=== PATIENT | female | born 1955 | race African-American/Black ===

== ENCOUNTER 2018-05-22 09:20 | Inpatient (IN) ==
[2018-05-22 10:38] LABS: Basophils % 0.5 % (0.0-0.8); Eosinophils # 0.1 10*3/uL (0.0-0.87); Eosinophils % 1.6 % (0.00-10.9); Hemoglobin 11.1 GM/DL (12.0-16.0); Immature Granulocytes % 0.7 %; Immature Granulocytes Absolute 0.06 #; Lymphocytes # 1.7 10*3/uL (1.4-4.0); Lymphocytes % 20.3 % (21.3-54.2); Mean Corpuscular HGB Conc 30.8 GM/DL (32-36); Mean Corpuscular Hemoglobin 27 PG (27-34); Mean Corpuscular Volume 87.6 FL (87-102); Mean Platelet Volume 11.5 FL (9.6-12.0); Monocytes # 0.7 10*3/uL (0.11-0.8); Monocytes % 8.3 % (1.7-12.7); Neutrophils # 5.9 10*3/uL (1.4-7.4); Neutrophils % 68.6 % (38.7-73.9); Platelet Count 193 T/CUMM (130-400); Red Blood Count 4.11 MC/CUMM (3.8-5.5); Red Cell Distribution Width 16.4 % (9.3-17.3); White Blood Count 8.5 T/CUMM (4-12)
[2018-05-22 10:49] LABS: PT Patient Result 10.2 SECS
[2018-05-22 10:55] LABS: Partial Thromboplastin Time 39.8 SECS (0-40)
[2018-05-22 11:23] LABS: Alanine Aminotransferase 30 U/L (13-56); Albumin 3.4 G/DL (3.4-5.0); Alkaline Phosphatase 171 U/L (45-117); Aspartate Amino Transferase 17 U/L (0-37); Blood Urea Nitrogen 76 MG/DL (7-18); Calcium 9.7 MG/DL (8.5-10.1); Glucose 144 MG/DL (74-106); Osmolality,Calculated 302.5 MOS/KG (273-304); Potassium 5.3 MMOL/L (3.5-5.1); Sodium 139 MMOL/L (136-145); Total Protein 7.5 G/DL (6.4-8.3); Troponin I Only < 0.015 NG/ML (0.00-0.045)
[2018-05-22] MEDS ORDERED: ONDANSETRON 4 MG/2 ML VIAL IV PRN (14:01)
[2018-05-22] MEDS ORDERED: DOCUSATE SODIUM 100 MG CAPSULE PO PRN (14:01)
[2018-05-22] MEDS ORDERED: ACETAMINOPHEN 325 MG TABLET PO PRN (14:01)
[2018-05-22] MEDS ORDERED: guaiFENesin/DM ER 600-30 MG TABLET PO PRN (14:01)
[2018-05-22] MEDS ORDERED: MORPHINE 4 MG/1 ML VIAL IV PRN (14:01)
[2018-05-22] MEDS ORDERED: GLUCAGON 1 MG VIAL IM PRN (14:01)
[2018-05-22] MEDS ORDERED: LACTULOSE 20 GM/30 ML UDCUP PO PRN (14:01)
[2018-05-22] MEDS ORDERED: DEXTROSE 50% 25 GM/50 ML VIAL IV PRN (14:01)
[2018-05-22] MEDS ORDERED: diphenhydrAMINE CAP 25 MG CAPSULE PO PRN (14:04)
[2018-05-22] MEDS ORDERED: SODIUM POLYSTYRENE SULFATE 15 GM/60 ML BOTTLE PO ONE (14:19)
[2018-05-22] MEDS: SODIUM CHLORIDE 0.9% 1,000 ML IV SCH (16:51)
[2018-05-22] MEDS: INSULIN LISPRO 100 UNIT/ML SUBCUT SCH ×2 (17:29→22:29)
[2018-05-22] MEDS: INSULIN NPH/REGULAR 70/30 100 UNIT/ML SUBCUT SCH (17:29)
[2018-05-22] MEDS: ATORVASTATIN 20 MG TABLET PO SCH (22:28)
[2018-05-22] MEDS: ENOXAPARIN 40 MG/0.4 ML SYRINGE SUBCUT SCH (22:31)
[2018-05-22] MEDS: INSULIN GLARGINE 100 UNIT/ML SUBCUT SCH (22:31)
[2018-05-22] MEDS: PANTOPRAZOLE 40 MG TABLET PO SCH (23:13)
[2018-05-23] MEDS: SODIUM CHLORIDE 0.9% 1,000 ML IV SCH ×2 (04:26→17:47)
[2018-05-23 07:27] LABS: Basophils % 0.5 % (0.0-0.8); Eosinophils # 0.1 10*3/uL (0.0-0.87); Eosinophils % 1.9 % (0.00-10.9); Hematocrit 33.4 VOL% (35.7-47.0); Hemoglobin 10.4 GM/DL (12.0-16.0); Immature Granulocytes % 0.7 %; Immature Granulocytes Absolute 0.04 #; Lymphocytes # 1.4 10*3/uL (1.4-4.0); Lymphocytes % 23.9 % (21.3-54.2); Mean Corpuscular HGB Conc 31.1 GM/DL (32-36); Mean Corpuscular Hemoglobin 27 PG (27-34); Mean Corpuscular Volume 86.5 FL (87-102); Mean Platelet Volume 11.9 FL (9.6-12.0); Monocytes # 0.5 10*3/uL (0.11-0.8); Monocytes % 8.2 % (1.7-12.7); NRBC # 0.02 10*3/uL; Neutrophils # 3.7 10*3/uL (1.4-7.4); Neutrophils % 64.8 % (38.7-73.9); Platelet Count 189 T/CUMM (130-400); Red Blood Count 3.86 MC/CUMM (3.8-5.5); Red Cell Distribution Width 16.5 % (9.3-17.3); White Blood Count 5.7 T/CUMM (4-12)
[2018-05-23] MEDS: INSULIN LISPRO 100 UNIT/ML SUBCUT SCH ×4 (07:30→20:55)
[2018-05-23 08:10] LABS: Calcium 8.9 MG/DL (8.5-10.1); Osmolality,Calculated 298.3 MOS/KG (273-304); Potassium 4.8 MMOL/L (3.5-5.1); Thyroid Stimulating Hormone 1.67 uIU/ml (0.358-3.74)
[2018-05-23] MEDS ORDERED: PANTOPRAZOLE 40 MG TABLET PO SCH (09:00)
[2018-05-23] MEDS: INSULIN NPH/REGULAR 70/30 100 UNIT/ML SUBCUT SCH ×2 (09:10→17:21)
[2018-05-23] MEDS: ALLOPURINOL 300 MG TABLET PO SCH (09:11)
[2018-05-23] MEDS: PYRIDOXINE 100 MG TABLET PO SCH (09:11)
[2018-05-23] MEDS: FEXOFENADINE 180 MG TABLET PO SCH (09:11)
[2018-05-23] MEDS: CYANOCOBALAMIN 500 MCG TABLET PO SCH (09:11)
[2018-05-23] MEDS: PANTOPRAZOLE 40 MG TABLET PO SCH ×2 (09:11→20:53)
[2018-05-23] MEDS: ASPIRIN EC 81 MG TABLET PO SCH (09:11)
[2018-05-23] MEDS: ATENOLOL 50 MG TABLET PO SCH (09:11)
[2018-05-23] MEDS: ATORVASTATIN 20 MG TABLET PO SCH (20:53)
[2018-05-23] MEDS: INSULIN GLARGINE 100 UNIT/ML SUBCUT SCH (20:54)
[2018-05-23] MEDS: ENOXAPARIN 40 MG/0.4 ML SYRINGE SUBCUT SCH (20:54)
[2018-05-24 07:15] LABS: Basophils % 0.5 % (0.0-0.8); Eosinophils # 0.2 10*3/uL (0.0-0.87); Eosinophils % 2.8 % (0.00-10.9); Hematocrit 31.5 VOL% (35.7-47.0); Hemoglobin 9.7 GM/DL (12.0-16.0); Immature Granulocytes % 0.3 %; Immature Granulocytes Absolute 0.02 #; Lymphocytes # 1.5 10*3/uL (1.4-4.0); Lymphocytes % 24.5 % (21.3-54.2); Mean Corpuscular HGB Conc 30.8 GM/DL (32-36); Mean Corpuscular Hemoglobin 27 PG (27-34); Mean Platelet Volume 12.2 FL (9.6-12.0); Monocytes # 0.6 10*3/uL (0.11-0.8); Monocytes % 9.9 % (1.7-12.7); Neutrophils # 3.7 10*3/uL (1.4-7.4); Platelet Count 177 T/CUMM (130-400); Red Blood Count 3.58 MC/CUMM (3.8-5.5); Red Cell Distribution Width 16.3 % (9.3-17.3)
[2018-05-24 07:48] LABS: Calcium 8.7 MG/DL (8.5-10.1); Osmolality,Calculated 296.8 MOS/KG (273-304); Potassium 4.4 MMOL/L (3.5-5.1)
[2018-05-24] MEDS: FEXOFENADINE 180 MG TABLET PO SCH (09:34)
[2018-05-24] MEDS: CYANOCOBALAMIN 500 MCG TABLET PO SCH (09:34)
[2018-05-24] MEDS: ATENOLOL 50 MG TABLET PO SCH (09:34)
[2018-05-24] MEDS: PYRIDOXINE 100 MG TABLET PO SCH (09:34)
[2018-05-24] MEDS: ASPIRIN EC 81 MG TABLET PO SCH (09:34)
[2018-05-24] MEDS: SODIUM CHLORIDE 0.9% 1,000 ML IV SCH (09:34)
[2018-05-24] MEDS: PANTOPRAZOLE 40 MG TABLET PO SCH ×2 (09:35→20:41)
[2018-05-24] MEDS: INSULIN NPH/REGULAR 70/30 100 UNIT/ML SUBCUT SCH ×2 (09:35→17:01)
[2018-05-24] MEDS: INSULIN LISPRO 100 UNIT/ML SUBCUT SCH ×4 (09:35→20:41)
[2018-05-24] MEDS: ALLOPURINOL 300 MG TABLET PO SCH (09:35)
[2018-05-24] MEDS ORDERED: FUROSEMIDE 40 MG/4 ML VIAL IV ONE (09:39)
[2018-05-24] MEDS: FUROSEMIDE 40 MG/4 ML VIAL IV SCH (10:11)
[2018-05-24] MEDS: ATORVASTATIN 20 MG TABLET PO SCH (20:41)
[2018-05-24] MEDS: ENOXAPARIN 40 MG/0.4 ML SYRINGE SUBCUT SCH (20:41)
[2018-05-24] MEDS: INSULIN GLARGINE 100 UNIT/ML SUBCUT SCH (20:41)
[2018-05-25 07:01] LABS: Basophils % 0.5 % (0.0-0.8); Eosinophils # 0.2 10*3/uL (0.0-0.87); Eosinophils % 2.9 % (0.00-10.9); Hematocrit 32.9 VOL% (35.7-47.0); Immature Granulocytes % 0.5 %; Immature Granulocytes Absolute 0.04 #; Lymphocytes # 1.9 10*3/uL (1.4-4.0); Lymphocytes % 24.8 % (21.3-54.2); Mean Corpuscular HGB Conc 30.4 GM/DL (32-36); Mean Corpuscular Hemoglobin 27 PG (27-34); Mean Corpuscular Volume 89.4 FL (87-102); Mean Platelet Volume 12.2 FL (9.6-12.0); Monocytes # 0.8 10*3/uL (0.11-0.8); Monocytes % 10.4 % (1.7-12.7); Neutrophils # 4.7 10*3/uL (1.4-7.4); Neutrophils % 60.9 % (38.7-73.9); Platelet Count 184 T/CUMM (130-400); Red Blood Count 3.68 MC/CUMM (3.8-5.5); Red Cell Distribution Width 16.1 % (9.3-17.3); White Blood Count 7.7 T/CUMM (4-12)
[2018-05-25 07:18] LABS: Calcium 9.2 MG/DL (8.5-10.1); Osmolality,Calculated 291.8 MOS/KG (273-304); Potassium 3.9 MMOL/L (3.5-5.1)
[2018-05-25] MEDS: INSULIN LISPRO 100 UNIT/ML SUBCUT SCH ×4 (09:18→21:02)
[2018-05-25] MEDS: FUROSEMIDE 40 MG/4 ML VIAL IV SCH (09:19)
[2018-05-25] MEDS: CYANOCOBALAMIN 500 MCG TABLET PO SCH (09:19)
[2018-05-25] MEDS: INSULIN NPH/REGULAR 70/30 100 UNIT/ML SUBCUT SCH ×2 (09:19→16:46)
[2018-05-25] MEDS: PANTOPRAZOLE 40 MG TABLET PO SCH ×2 (09:19→21:01)
[2018-05-25] MEDS: ATENOLOL 50 MG TABLET PO SCH (09:19)
[2018-05-25] MEDS: ASPIRIN EC 81 MG TABLET PO SCH (09:19)
[2018-05-25] MEDS: PYRIDOXINE 100 MG TABLET PO SCH (09:20)
[2018-05-25] MEDS: ALLOPURINOL 300 MG TABLET PO SCH (09:20)
[2018-05-25] MEDS: FEXOFENADINE 180 MG TABLET PO SCH (09:20)
[2018-05-25] MEDS: ENOXAPARIN 40 MG/0.4 ML SYRINGE SUBCUT SCH (21:01)
[2018-05-25] MEDS: ATORVASTATIN 20 MG TABLET PO SCH (21:01)
[2018-05-25] MEDS: INSULIN GLARGINE 100 UNIT/ML SUBCUT SCH (21:01)
[2018-05-26 06:49] LABS: Basophils % 0.5 % (0.0-0.8); Eosinophils # 0.2 10*3/uL (0.0-0.87); Eosinophils % 2.6 % (0.00-10.9); Hematocrit 34.2 VOL% (35.7-47.0); Hemoglobin 10.5 GM/DL (12.0-16.0); Immature Granulocytes % 0.5 %; Immature Granulocytes Absolute 0.04 #; Lymphocytes # 1.6 10*3/uL (1.4-4.0); Lymphocytes % 20.1 % (21.3-54.2); Mean Corpuscular HGB Conc 30.7 GM/DL (32-36); Mean Corpuscular Hemoglobin 27 PG (27-34); Mean Corpuscular Volume 88.6 FL (87-102); Mean Platelet Volume 11.7 FL (9.6-12.0); Monocytes # 0.7 10*3/uL (0.11-0.8); Monocytes % 8.3 % (1.7-12.7); Neutrophils # 5.5 10*3/uL (1.4-7.4); Platelet Count 193 T/CUMM (130-400); Red Blood Count 3.86 MC/CUMM (3.8-5.5); Red Cell Distribution Width 16.3 % (9.3-17.3); White Blood Count 8.1 T/CUMM (4-12)
[2018-05-26 07:12] LABS: Osmolality,Calculated 287.4 MOS/KG (273-304); Potassium 3.8 MMOL/L (3.5-5.1)
[2018-05-26] MEDS: INSULIN LISPRO 100 UNIT/ML SUBCUT SCH ×2 (09:18→14:26)
[2018-05-26] MEDS: INSULIN NPH/REGULAR 70/30 100 UNIT/ML SUBCUT SCH (09:23)
[2018-05-26] MEDS: ATENOLOL 50 MG TABLET PO SCH (09:24)
[2018-05-26] MEDS: ALLOPURINOL 300 MG TABLET PO SCH (09:24)
[2018-05-26] MEDS: PANTOPRAZOLE 40 MG TABLET PO SCH (09:24)
[2018-05-26] MEDS: FUROSEMIDE 40 MG/4 ML VIAL IV SCH (09:24)
[2018-05-26] MEDS: PYRIDOXINE 100 MG TABLET PO SCH (09:25)
[2018-05-26] MEDS: ASPIRIN EC 81 MG TABLET PO SCH (09:25)
[2018-05-26] MEDS: FEXOFENADINE 180 MG TABLET PO SCH (09:25)
[2018-05-26] MEDS: CYANOCOBALAMIN 500 MCG TABLET PO SCH (09:25)
[2018-05-26] MEDS ORDERED: MAGNESIUM SULF RIDER 4 GM in PREMIX 1 EACH IV PRN (09:57)
[2018-05-26] MEDS ORDERED: MAGNESIUM SULF RIDER 2 GM in PREMIX 1 EACH IV PRN (09:57)
[2018-05-26] MEDS ORDERED: MAGNESIUM OXIDE 400 MG TABLET PO ONE (10:55)
[2018-05-26] MEDS ORDERED: POLYETHYLENE GLYCOL POWDER 17 GM PACK PO SCH (11:00)
[2018-05-26 14:25] VITALS: BP 137/67
== END 2018-05-26 14:16 | disposition home or self-care (01) | DRG 683 ==
LOC: N.ED 09:20 → SUATTDRO 11:44 → N.EDINP 11:44 → N.5E 15:36
PROVIDERS: ADMIT Internal Medicine; ATTEND Internal Medicine

== ENCOUNTER 2020-08-01 17:22 | Observation (INO) ==
[2020-08-01 18:08] LABS: Basophils % 0.5 % (0.0-0.8); Eosinophils # 0.2 10*3/uL (0.0-0.87); Eosinophils % 2.6 % (0.00-10.9); Hematocrit 39.3 VOL% (35.7-47.0); Hemoglobin 12.2 GM/DL (12.0-16.0); Immature Granulocytes % 0.8 %; Immature Granulocytes Absolute 0.05 #; Lymphocytes % 16.5 % (21.3-54.2); Mean Corpuscular Volume 84.5 FL (87-102); Mean Platelet Volume 11.2 FL (9.6-12.0); Neutrophils % 68.6 % (38.7-73.9); Platelet Count 206 T/CUMM (130-400); Red Blood Count 4.65 MC/CUMM (3.8-5.5); Red Cell Distribution Width 16.4 % (9.3-17.3); White Blood Count 6.3 T/CUMM (4-12)
[2020-08-01 18:30] LABS: Albumin 3.1 G/DL (3.4-5.0); Bilirubin,Total 0.5 MG/DL (0.2-1.0); Calcium 8.8 MG/DL (8.5-10.1); Osmolality,Calculated 275.2 MOS/KG (273-304); Total Protein 7.4 G/DL (6.4-8.3)
[2020-08-01] MEDS ORDERED: DEXTROSE 50% 25 GM/50 ML VIAL IV PRN ×2 (19:31→19:35)
[2020-08-01] MEDS ORDERED: GLUCAGON 1 MG VIAL IM PRN (19:31)
[2020-08-01] MEDS: DOCUSATE SODIUM 100 MG CAPSULE PO SCH (21:05)
[2020-08-01] MEDS: PANTOPRAZOLE 40 MG TABLET PO SCH (21:05)
[2020-08-01] MEDS: INSULIN REGULAR 100 UNIT/ML SUBCUT SCH (21:13)
[2020-08-01] MEDS: MONTELUKAST 10 MG TABLET PO SCH (21:30)
[2020-08-01] MEDS: HEPARIN 5,000 UNIT/1 ML VIAL SUBCUT SCH (22:00)
[2020-08-02 04:45] LABS: Basophils % 0.5 % (0.0-0.8); Hemoglobin 12.9 GM/DL (12.0-16.0); Immature Granulocytes % 0.4 %; Immature Granulocytes Absolute 0.02 #; Lymphocytes # 1.4 10*3/uL (1.4-4.0); Lymphocytes % 25.4 % (21.3-54.2); Mean Corpuscular HGB Conc 31.5 GM/DL (32-36); Mean Corpuscular Volume 83.3 FL (87-102); Mean Platelet Volume 11.7 FL (9.6-12.0); Monocytes % 9.6 % (1.7-12.7); Neutrophils % 64.1 % (38.7-73.9); Platelet Count 213 T/CUMM (130-400); Red Blood Count 4.92 MC/CUMM (3.8-5.5); Red Cell Distribution Width 16.3 % (9.3-17.3); White Blood Count 5.6 T/CUMM (4-12)
[2020-08-02 04:59] LABS: Bilirubin,Total 0.4 MG/DL (0.2-1.0); Calcium 8.6 MG/DL (8.5-10.1); Osmolality,Calculated 277.1 MOS/KG (273-304); Total Protein 7.5 G/DL (6.4-8.3)
[2020-08-02 05:00] LABS: Ferritin 108.8 ng/ml (8-252)
[2020-08-02] MEDS ORDERED: INFLUENZA VIRUS VACCINE 0.5 ML SYRINGE IM ONE (09:24)
[2020-08-02] MEDS: ASPIRIN EC 81 MG TABLET PO SCH (09:34)
[2020-08-02] MEDS: HEPARIN 5,000 UNIT/1 ML VIAL SUBCUT SCH ×3 (09:34→21:26)
[2020-08-02] MEDS: CALCIUM (CARBONATE)/VITAMIN D 600 MG-400 UNIT TABLET PO SCH (09:34)
[2020-08-02] MEDS: CYANOCOBALAMIN 500 MCG TABLET PO SCH (09:35)
[2020-08-02] MEDS: CHOLECALCIFEROL 5,000 UNIT TABLET PO SCH (09:35)
[2020-08-02] MEDS: MONTELUKAST 10 MG TABLET PO SCH ×2 (09:35→21:26)
[2020-08-02] MEDS: DOCUSATE SODIUM 100 MG CAPSULE PO SCH ×3 (09:35→21:26)
[2020-08-02] MEDS: PANTOPRAZOLE 40 MG TABLET PO SCH ×2 (09:35→21:26)
[2020-08-02] MEDS: ZINC GLUCONATE 50 MG TABLET PO SCH (09:35)
[2020-08-02] MEDS: ACETAMINOPHEN 325 MG TABLET PO PRN (09:37)
[2020-08-02] MEDS: INSULIN REGULAR 100 UNIT/ML SUBCUT SCH ×4 (09:47→21:26)
[2020-08-02] MEDS: ONDANSETRON 4 MG/2 ML VIAL IV PRN (15:55)
[2020-08-03] MEDS: ACETAMINOPHEN 325 MG TABLET PO PRN (03:46)
[2020-08-03 05:45] LABS: Basophils % 0.2 % (0.0-0.8); Hematocrit 39.6 VOL% (35.7-47.0); Hemoglobin 12.7 GM/DL (12.0-16.0); Immature Granulocytes % 0.4 %; Immature Granulocytes Absolute 0.02 #; Mean Corpuscular HGB Conc 32.1 GM/DL (32-36); Mean Platelet Volume 11.5 FL (9.6-12.0); Monocytes % 5.3 % (1.7-12.7); Neutrophils % 76.1 % (38.7-73.9); Platelet Count 191 T/CUMM (130-400); Red Blood Count 4.77 MC/CUMM (3.8-5.5); Red Cell Distribution Width 16.2 % (9.3-17.3); White Blood Count 5.7 T/CUMM (4-12)
[2020-08-03] MEDS: HEPARIN 5,000 UNIT/1 ML VIAL SUBCUT SCH ×2 (05:48→14:50)
[2020-08-03 06:09] LABS: Albumin 2.6 G/DL (3.4-5.0); Bilirubin,Total 1.6 MG/DL (0.2-1.0); Calcium 8.7 MG/DL (8.5-10.1)
[2020-08-03 06:11] LABS: Ferritin 168.5 ng/ml (8-252)
[2020-08-03] MEDS: ONDANSETRON 4 MG/2 ML VIAL IV PRN (09:01)
[2020-08-03] MEDS: INSULIN REGULAR 100 UNIT/ML SUBCUT SCH ×2 (09:02→12:50)
[2020-08-03] MEDS: MONTELUKAST 10 MG TABLET PO SCH (09:03)
[2020-08-03] MEDS: CALCIUM (CARBONATE)/VITAMIN D 600 MG-400 UNIT TABLET PO SCH (09:03)
[2020-08-03] MEDS: DOCUSATE SODIUM 100 MG CAPSULE PO SCH (09:03)
[2020-08-03] MEDS: CYANOCOBALAMIN 500 MCG TABLET PO SCH (09:03)
[2020-08-03] MEDS: PANTOPRAZOLE 40 MG TABLET PO SCH (09:03)
[2020-08-03] MEDS: ASPIRIN EC 81 MG TABLET PO SCH (09:03)
[2020-08-03] MEDS: ZINC GLUCONATE 50 MG TABLET PO SCH (09:03)
[2020-08-03] MEDS: CHOLECALCIFEROL 5,000 UNIT TABLET PO SCH (09:03)
[2020-08-03 12:04] VITALS: BP 129/55
== END 2020-08-03 14:30 | disposition home or self-care (01) ==
LOC: EDUNIT# → EDBD → N.ED 17:22 → INTOOBSV 19:14 → N.EDINP 19:14 → N.2E 08-02 07:22
PROVIDERS: ADMIT Hospitalist; ATTEND Hospitalist

== ENCOUNTER 2020-08-06 16:27 | Inpatient (IN) ==
[2020-08-06 18:39] LABS: Basophils % 0.4 % (0.0-0.8); Hematocrit 37.4 VOL% (35.7-47.0); Immature Granulocytes % 0.6 %; Immature Granulocytes Absolute 0.03 #; Lymphocytes # 0.6 10*3/uL (1.4-4.0); Lymphocytes % 11.5 % (21.3-54.2); Mean Corpuscular HGB Conc 32.1 GM/DL (32-36); Mean Corpuscular Volume 81.3 FL (87-102); Mean Platelet Volume 11.3 FL (9.6-12.0); Monocytes % 4.4 % (1.7-12.7); Neutrophils % 83.1 % (38.7-73.9); Red Cell Distribution Width 16.4 % (9.3-17.3); White Blood Count 5.2 T/CUMM (4-12)
[2020-08-06 18:55] LABS: Platelet Count 135 T/CUMM (130-400)
[2020-08-06 19:15] LABS: Bilirubin,Urine Negative (Negative); Blood, Urine Large mg/dL (Negative); Glucose,Urine (UA) Negative (Negative); Ketones,Urine Negative (Negative); Mucus,Urine Occasional /LPF (Occasional); Nitrite,Urine Negative (Negative); Protein,Urine 100 MG/DL; Squamous Epithelial Cell,Urine Occasional /HPF (0-10); Urine Appearance CLEAR (Clear); Urine Color Yellow (Yellow); Urine Specific Gravity 1.011 (1.001-1.035); Urine Urobilinogen < 2.0 EU/DL (0.2-1.0)
[2020-08-06 19:41] LABS: ABG Base Excess -3.8 MMOL/L (-2.5-2.5); ABG PCO2 42.6 MM HG (35-48); ABG PH 7.325 (7.35-7.45); Allen Test Positive
[2020-08-06 19:45] LABS: ABG PO2 23.7 MM HG (80-95)
[2020-08-06 20:04] LABS: Albumin 2.8 G/DL (3.4-5.0); Bilirubin,Total 0.6 MG/DL (0.2-1.0); Calcium 9.1 MG/DL (8.5-10.1); Osmolality,Calculated 285.1 MOS/KG (273-304); Total Protein 7.7 G/DL (6.4-8.3)
[2020-08-06] MEDS ORDERED: FUROSEMIDE 40 MG/4 ML VIAL IV STA (20:09)
[2020-08-06 21:24] LABS: ABG Base Excess -4.6 MMOL/L (-2.5-2.5); ABG HCO3 20.4 MMOL/L (20-26); ABG Oxygen Saturation 88.6 % (95-100); ABG PCO2 31.6 MM HG (35-48); ABG PH 7.393 (7.35-7.45); ABG PO2 57.6 MM HG (80-95); Allen Test Positive; Pt O2 Delivery Device Other
[2020-08-06] MEDS ORDERED: PROMETHAZINE 25 MG/1 ML VIAL IM PRN (21:27)
[2020-08-06] MEDS ORDERED: ALBUTEROL 2.5 MG/3 ML NEB RESP TX PRN (21:27)
[2020-08-06] MEDS ORDERED: ONDANSETRON 4 MG/2 ML VIAL IV PRN (21:27)
[2020-08-06] MEDS: SODIUM CHLORIDE 0.9% 1,000 ML IV SCH (22:30)
[2020-08-06] MEDS ORDERED: PANTOPRAZOLE 40 MG VIAL IV SCH (23:00)
[2020-08-06] MEDS ORDERED: ENOXAPARIN 30 MG/0.3 ML SYRINGE SUBCUT SCH (23:00)
[2020-08-07] MEDS: ALBUTEROL INHALER 18 GM INH SCH ×5 (06:00→23:45)
[2020-08-07 06:03] LABS: Basophils % 0.3 % (0.0-0.8); Hematocrit 39.3 VOL% (35.7-47.0); Hemoglobin 12.5 GM/DL (12.0-16.0); Immature Granulocytes % 1.8 %; Immature Granulocytes Absolute 0.11 #; Lymphocytes # 1.1 10*3/uL (1.4-4.0); Lymphocytes % 16.9 % (21.3-54.2); Mean Corpuscular HGB Conc 31.8 GM/DL (32-36); Mean Corpuscular Volume 81.9 FL (87-102); Mean Platelet Volume 11.2 FL (9.6-12.0); Monocytes % 4.2 % (1.7-12.7); Neutrophils % 76.8 % (38.7-73.9); Platelet Count 204 T/CUMM (130-400); Red Cell Distribution Width 16.3 % (9.3-17.3); White Blood Count 6.3 T/CUMM (4-12)
[2020-08-07 06:14] LABS: Albumin 2.5 G/DL (3.4-5.0); Bilirubin,Total 0.9 MG/DL (0.2-1.0); Calcium 8.8 MG/DL (8.5-10.1); Osmolality,Calculated 284.7 MOS/KG (273-304); Total Protein 7.3 G/DL (6.4-8.3)
[2020-08-07] MEDS ORDERED: LORazepam 2 MG/1 ML VIAL IV ONE (06:15)
[2020-08-07] MEDS ORDERED: LORazepam 2 MG/1 ML VIAL ONE (06:17)
[2020-08-07 06:23] LABS: Microcytosis Slight; Platelet Estimate Adequate
[2020-08-07] MEDS ORDERED: ROCURONIUM 100 MG/10 ML VIAL IV ONE ×2 (06:25→06:47)
[2020-08-07] MEDS ORDERED: ETOMIDATE 20 MG/10 ML VIAL IV ONE ×2 (06:25→06:46)
[2020-08-07] MEDS ORDERED: LABETALOL 20 MG/4 ML SYRINGE IV PRN (07:02)
[2020-08-07] MEDS ORDERED: NOREPINEPHRINE 8 MG in SODIUM CHLORIDE 0.9% 242 ML IV PRN (07:46)
[2020-08-07 07:49] LABS: ABG Base Excess -6.2 MMOL/L (-2.5-2.5); ABG HCO3 18.8 MMOL/L (20-26); ABG Oxygen Saturation 67.3 % (95-100); ABG PCO2 55.7 MM HG (35-48); ABG PH 7.218 (7.35-7.45); ABG PO2 43.9 MM HG (80-95); ABG TCO2 20.4 MMOL/L (23-27); Pt O2 Delivery Device Ventilator
[2020-08-07] MEDS: fentaNYL INJ 1,250 MCG in SODIUM CHLORIDE 0.9% 225 ML IV PRN ×2 (08:50→20:04)
[2020-08-07] MEDS: ZINC GLUCONATE 50 MG TABLET PO SCH (10:00)
[2020-08-07] MEDS: DEXAMETHASONE 4 MG/1 ML VIAL IV SCH (10:00)
[2020-08-07] MEDS: ENOXAPARIN 120 MG/0.8 ML SYRINGE SUBCUT SCH ×2 (10:00→20:20)
[2020-08-07] MEDS: PIPERACILLIN/TAZOBACTAM 3,375 MG in SODIUM CHLORIDE 0.9% 100 ML IV SCH ×2 (10:35→18:05)
[2020-08-07] MEDS: CHOLECALCIFEROL 1,000 UNIT TABLET PO SCH (11:00)
[2020-08-07] MEDS ORDERED: cloNIDine 0.3 MG/24 HR PATCH TRANSDERM SCH (11:00)
[2020-08-07] MEDS: FAMOTIDINE 20 MG/2 ML VIAL IV SCH ×2 (12:51→20:22)
[2020-08-07] MEDS: ASCORBIC ACID 500 MG TABLET PO SCH (12:51)
[2020-08-07] MEDS: ASPIRIN EC 81 MG TABLET PO SCH (12:52)
[2020-08-07 13:42] LABS: ABG HCO3 18.5 MMOL/L (20-26); ABG Oxygen Saturation 82.3 % (95-100); ABG PCO2 41.5 MM HG (35-48); ABG PH 7.281 (7.35-7.45); ABG PO2 51.4 MM HG (80-95); ABG TCO2 17.5 MMOL/L (23-27); Allen Test Positive; Pt O2 Delivery Device Ventilator
[2020-08-07] MEDS: INSULIN LISPRO 100 UNIT/ML SUBCUT SCH ×3 (14:30→23:45)
[2020-08-07] MEDS: atenoloL 50 MG TABLET PER TUBE SCH (16:20)
[2020-08-07] MEDS: SODIUM BICARB INJ 100 MEQ in STERILE WATER INJ 1,000 ML IV SCH (16:21)
[2020-08-07] MEDS: AZITHROMYCIN INJ 500 MG in SODIUM CHLORIDE 0.9% 250 ML IV SCH (16:30)
[2020-08-07] MEDS: SODIUM CHLORIDE 0.9% 1,000 ML IV SCH (19:47)
[2020-08-07] MEDS: ATORVASTATIN 20 MG TABLET PER TUBE SCH (20:20)
[2020-08-08] MEDS: PIPERACILLIN/TAZOBACTAM 3,375 MG in SODIUM CHLORIDE 0.9% 100 ML IV SCH ×3 (02:38→18:21)
[2020-08-08] MEDS: fentaNYL INJ 1,250 MCG in SODIUM CHLORIDE 0.9% 225 ML IV PRN ×3 (02:38→17:15)
[2020-08-08] MEDS: ALBUTEROL INHALER 18 GM INH SCH ×2 (04:02→06:42)
[2020-08-08 04:49] LABS: ABG Base Excess -5.8 MMOL/L (-2.5-2.5); ABG HCO3 19.6 MMOL/L (20-26); ABG Oxygen Saturation 93.5 % (95-100); ABG PCO2 48.6 MM HG (35-48); ABG PH 7.255 (7.35-7.45); ABG PO2 75.2 MM HG (80-95); ABG TCO2 19.7 MMOL/L (23-27); Allen Test Positive; Pt O2 Delivery Device Ventilator
[2020-08-08 05:07] LABS: Basophils % 0.1 % (0.0-0.8); Hematocrit 36.2 VOL% (35.7-47.0); Hemoglobin 11.2 GM/DL (12.0-16.0); Immature Granulocytes % 1.2 %; Immature Granulocytes Absolute 0.12 #; Lymphocytes # 0.8 10*3/uL (1.4-4.0); Lymphocytes % 8.3 % (21.3-54.2); Mean Corpuscular HGB Conc 30.9 GM/DL (32-36); Mean Corpuscular Volume 83.8 FL (87-102); Mean Platelet Volume 11.5 FL (9.6-12.0); Monocytes % 5.7 % (1.7-12.7); Neutrophils % 84.7 % (38.7-73.9); Platelet Count 210 T/CUMM (130-400); Red Blood Count 4.32 MC/CUMM (3.8-5.5); Red Cell Distribution Width 16.8 % (9.3-17.3); White Blood Count 9.7 T/CUMM (4-12)
[2020-08-08 05:20] LABS: Calcium 8.1 MG/DL (8.5-10.1); Osmolality,Calculated 297.8 MOS/KG (273-304)
[2020-08-08] MEDS: INSULIN LISPRO 100 UNIT/ML SUBCUT SCH ×4 (06:09→23:46)
[2020-08-08] MEDS: SODIUM BICARB INJ 100 MEQ in STERILE WATER INJ 1,000 ML IV SCH ×2 (06:40→21:32)
[2020-08-08] MEDS: ZINC GLUCONATE 50 MG TABLET PO SCH (08:37)
[2020-08-08] MEDS: ASPIRIN EC 81 MG TABLET PO SCH (08:37)
[2020-08-08] MEDS: CHOLECALCIFEROL 1,000 UNIT TABLET PO SCH (08:37)
[2020-08-08] MEDS: atenoloL 50 MG TABLET PER TUBE SCH ×2 (08:38→09:55)
[2020-08-08] MEDS: ASCORBIC ACID 500 MG TABLET PO SCH (08:39)
[2020-08-08] MEDS: ENOXAPARIN 120 MG/0.8 ML SYRINGE SUBCUT SCH ×2 (08:39→20:31)
[2020-08-08] MEDS: AZITHROMYCIN INJ 500 MG in SODIUM CHLORIDE 0.9% 250 ML IV SCH (08:40)
[2020-08-08] MEDS: FAMOTIDINE 20 MG/2 ML VIAL IV SCH ×2 (08:41→20:30)
[2020-08-08] MEDS: DEXAMETHASONE 4 MG/1 ML VIAL IV SCH (08:43)
[2020-08-08] MEDS ORDERED: GLUCAGON 1 MG VIAL IM PRN (09:49)
[2020-08-08] MEDS ORDERED: DEXTROSE 50% 25 GM/50 ML VIAL IV PRN (09:49)
[2020-08-08] MEDS ORDERED: INSULIN LISPRO 100 UNIT/ML SUBCUT SCH (12:00)
[2020-08-08] MEDS ORDERED: SODIUM CHLORIDE 0.9% 1,000 ML IV PRN (13:29)
[2020-08-08 15:35] LABS: Calcium 7.9 MG/DL (8.5-10.1)
[2020-08-08] MEDS: ATORVASTATIN 20 MG TABLET PER TUBE SCH (20:31)
[2020-08-09] MEDS: SODIUM BICARB INJ 100 MEQ in STERILE WATER INJ 1,000 ML IV SCH ×2 (01:22→17:27)
[2020-08-09] MEDS: fentaNYL INJ 1,250 MCG in SODIUM CHLORIDE 0.9% 225 ML IV PRN ×2 (01:40→06:46)
[2020-08-09] MEDS: PIPERACILLIN/TAZOBACTAM 3,375 MG in SODIUM CHLORIDE 0.9% 100 ML IV SCH ×3 (01:51→20:46)
[2020-08-09] MEDS: NOREPINEPHRINE 8 MG in SODIUM CHLORIDE 0.9% 242 ML IV PRN (01:56)
[2020-08-09 04:18] LABS: Basophils % 0.1 % (0.0-0.8); Hematocrit 32.9 VOL% (35.7-47.0); Hemoglobin 10.4 GM/DL (12.0-16.0); Immature Granulocytes % 1.9 %; Immature Granulocytes Absolute 0.26 #; Lymphocytes # 0.8 10*3/uL (1.4-4.0); Lymphocytes % 5.6 % (21.3-54.2); Mean Corpuscular HGB Conc 31.6 GM/DL (32-36); Mean Corpuscular Volume 82.5 FL (87-102); Mean Platelet Volume 11.3 FL (9.6-12.0); Monocytes % 7.1 % (1.7-12.7); NRBC # 0.07 10*3/uL; Neutrophils % 85.3 % (38.7-73.9); Platelet Count 243 T/CUMM (130-400); Red Blood Count 3.99 MC/CUMM (3.8-5.5); Red Cell Distribution Width 16.9 % (9.3-17.3); White Blood Count 13.5 T/CUMM (4-12)
[2020-08-09 04:27] LABS: Calcium 7.6 MG/DL (8.5-10.1); Osmolality,Calculated 299.2 MOS/KG (273-304)
[2020-08-09 04:34] LABS: ABG Base Excess -6.3 MMOL/L (-2.5-2.5); ABG HCO3 19.2 MMOL/L (20-26); ABG Oxygen Saturation 98.5 % (95-100); ABG PCO2 48.3 MM HG (35-48); ABG PH 7.247 (7.35-7.45); ABG TCO2 19.5 MMOL/L (23-27); Allen Test Positive; Pt O2 Delivery Device Ventilator
[2020-08-09] MEDS: INSULIN LISPRO 100 UNIT/ML SUBCUT SCH ×3 (06:25→17:24)
[2020-08-09] MEDS: ZINC GLUCONATE 50 MG TABLET PO SCH (08:01)
[2020-08-09] MEDS: ASCORBIC ACID 500 MG TABLET PO SCH (08:01)
[2020-08-09] MEDS: CHOLECALCIFEROL 1,000 UNIT TABLET PO SCH (08:01)
[2020-08-09] MEDS: ENOXAPARIN 120 MG/0.8 ML SYRINGE SUBCUT SCH (08:02)
[2020-08-09] MEDS: DEXAMETHASONE 4 MG/1 ML VIAL IV SCH (08:02)
[2020-08-09] MEDS: FAMOTIDINE 20 MG/2 ML VIAL IV SCH ×2 (08:02→20:46)
[2020-08-09] MEDS: ASPIRIN EC 81 MG TABLET PO SCH (08:03)
[2020-08-09] MEDS ORDERED: LORazepam 2 MG/1 ML VIAL IV PRN ×2 (08:17→19:30)
[2020-08-09] MEDS: AZITHROMYCIN INJ 500 MG in SODIUM CHLORIDE 0.9% 250 ML IV SCH (09:03)
[2020-08-09] MEDS ORDERED: ROCURONIUM 100 MG/10 ML VIAL IV ONE ×2 (10:02→10:30)
[2020-08-09 10:15] LABS: ABG Base Excess -6.4 MMOL/L (-2.5-2.5); ABG HCO3 18.4 MMOL/L (20-26); ABG Oxygen Saturation 46.2 % (95-100); ABG PCO2 64.8 MM HG (35-48); ABG TCO2 22.1 MMOL/L (23-27)
[2020-08-09 10:16] LABS: ABG PH 7.167 (7.35-7.45)
[2020-08-09] MEDS ORDERED: ROCURONIUM 500 MG in SODIUM CHLORIDE 0.9% 500 ML IV PRN (10:30)
[2020-08-09] MEDS ORDERED: FUROSEMIDE 100 MG/10 ML VIAL IV ONE (10:58)
[2020-08-09] MEDS ORDERED: CISATRACURIUM 200 MG in SODIUM CHLORIDE 0.9% 180 ML IV PRN (11:00)
[2020-08-09] MEDS: INSULIN GLARGINE 100 UNIT/ML SUBCUT SCH (12:50)
[2020-08-09 13:32] LABS: ABG Base Excess -5.3 MMOL/L (-2.5-2.5); ABG HCO3 19.9 MMOL/L (20-26); ABG Oxygen Saturation 84.8 % (95-100); ABG PCO2 42.2 MM HG (35-48); ABG PH 7.303 (7.35-7.45); ABG PO2 54.3 MM HG (80-95); ABG TCO2 19.1 MMOL/L (23-27)
[2020-08-09 16:59] LABS: Calcium 7.6 MG/DL (8.5-10.1); Osmolality,Calculated 301.4 MOS/KG (273-304)
[2020-08-09 17:00] LABS: ABG Base Excess -4.4 MMOL/L (-2.5-2.5); ABG HCO3 20.7 MMOL/L (20-26); ABG Oxygen Saturation 91.4 % (95-100); ABG PCO2 41.5 MM HG (35-48); ABG PH 7.323 (7.35-7.45); ABG TCO2 19.3 MMOL/L (23-27)
[2020-08-09] MEDS: MIDAZOLAM 100 MG in SODIUM CHLORIDE 0.9% 80 ML IV PRN (19:30)
[2020-08-09] MEDS: ATORVASTATIN 20 MG TABLET PER TUBE SCH (20:46)
[2020-08-10] MEDS: INSULIN LISPRO 100 UNIT/ML SUBCUT SCH ×4 (00:22→17:22)
[2020-08-10] MEDS: SODIUM BICARB INJ 100 MEQ in STERILE WATER INJ 1,000 ML IV SCH (01:36)
[2020-08-10 04:13] LABS: Allen Test Positive; Pt O2 Delivery Device Ventilator
[2020-08-10 04:14] LABS: ABG Base Excess -3.1 MMOL/L (-2.5-2.5); ABG HCO3 21.4 MMOL/L (20-26); ABG PCO2 36.6 MM HG (35-48); ABG PH 7.384 (7.35-7.45); ABG PO2 54.1 MM HG (80-95); ABG TCO2 22.5 MMOL/L (23-27)
[2020-08-10 04:15] LABS: ABG Oxygen Saturation 87.9 % (95-100)
[2020-08-10] MEDS ORDERED: ROCURONIUM 500 MG in SODIUM CHLORIDE 0.9% 500 ML IV PRN (04:20)
[2020-08-10 04:30] LABS: Basophils % 0.1 % (0.0-0.8); Hematocrit 31.3 VOL% (35.7-47.0); Hemoglobin 10.2 GM/DL (12.0-16.0); Immature Granulocytes % 1.7 %; Immature Granulocytes Absolute 0.21 #; Lymphocytes # 0.6 10*3/uL (1.4-4.0); Lymphocytes % 4.8 % (21.3-54.2); Mean Corpuscular HGB Conc 32.6 GM/DL (32-36); Mean Corpuscular Volume 79.8 FL (87-102); Mean Platelet Volume 11.6 FL (9.6-12.0); Monocytes % 7.4 % (1.7-12.7); NRBC # 0.08 10*3/uL; Platelet Count 247 T/CUMM (130-400); Red Blood Count 3.92 MC/CUMM (3.8-5.5); Red Cell Distribution Width 16.5 % (9.3-17.3); White Blood Count 12.4 T/CUMM (4-12)
[2020-08-10 04:49] LABS: Albumin 1.7 G/DL (3.4-5.0); Calcium 7.5 MG/DL (8.5-10.1); Ferritin 399.6 ng/ml (8-252); Osmolality,Calculated 297.5 MOS/KG (273-304); Total Protein 6.1 G/DL (6.4-8.3)
[2020-08-10 04:51] LABS: Band Neutrophils 1 % (0-10); Hypochromasia Slight; Lymphocytes 5 % (20-55); Microcytosis Slight; Nucleated Red Blood Cells 2 (0-5); Platelet Estimate Adequate; Segmented Neutrophils 85 % (50-85); Total Cells Counted 100
[2020-08-10] MEDS: MIDAZOLAM 100 MG in SODIUM CHLORIDE 0.9% 80 ML IV PRN ×2 (04:51→13:14)
[2020-08-10] MEDS: PIPERACILLIN/TAZOBACTAM 3,375 MG in SODIUM CHLORIDE 0.9% 100 ML IV SCH ×2 (05:40→17:24)
[2020-08-10] MEDS ORDERED: INFLUENZA VIRUS VACCINE 0.5 ML SYRINGE IM ONE (06:00)
[2020-08-10] MEDS: ZINC GLUCONATE 50 MG TABLET PO SCH (08:59)
[2020-08-10] MEDS: CHOLECALCIFEROL 1,000 UNIT TABLET PO SCH (08:59)
[2020-08-10] MEDS: ASPIRIN EC 81 MG TABLET PO SCH (08:59)
[2020-08-10] MEDS: ASCORBIC ACID 500 MG TABLET PO SCH (08:59)
[2020-08-10] MEDS: AZITHROMYCIN INJ 500 MG in SODIUM CHLORIDE 0.9% 250 ML IV SCH (09:00)
[2020-08-10] MEDS ORDERED: ENOXAPARIN 60 MG/0.6 ML SYRINGE SUBCUT SCH (09:00)
[2020-08-10] MEDS ORDERED: FAMOTIDINE 20 MG/2 ML VIAL IV SCH (09:00)
[2020-08-10] MEDS: DEXAMETHASONE 4 MG/1 ML VIAL IV SCH (09:00)
[2020-08-10] MEDS: INSULIN GLARGINE 100 UNIT/ML SUBCUT SCH (09:01)
[2020-08-10 09:57] LABS: Hemoglobin 9.5 GM/DL (12.0-16.0)
[2020-08-10 10:15] LABS: PT Patient Result 10.9 SECS (9.8-11.9); Partial Thromboplastin Time 34.7 SECS (23.9-33.8)
[2020-08-10] MEDS: PANTOPRAZOLE 40 MG VIAL IV SCH ×2 (11:04→20:12)
[2020-08-10] MEDS: ROCURONIUM 1,000 MG in SODIUM CHLORIDE 0.9% 175 ML IV PRN (13:14)
[2020-08-10 13:26] LABS: Hepatitis B Core IgM Quant 0.06 Index; Hepatitis B Surface Ag Quant < 0.10 Index; Hepatitis B Surface Ag Result Negative (Negative); Hepatitis C Virus Ab Quant 0.02 Index; Hepatitis C Virus Ab Result Negative (Negative)
[2020-08-10] MEDS ORDERED: FUROSEMIDE 100 MG/10 ML VIAL IV ONE (14:00)
[2020-08-10] MEDS ORDERED: FUROSEMIDE INJ 160 MG in SODIUM CHLORIDE 0.9% 50 ML IV ONE (14:00)
[2020-08-10 15:33] LABS: Hematocrit 28.6 VOL% (35.7-47.0); Hemoglobin 9.3 GM/DL (12.0-16.0)
[2020-08-10] MEDS ORDERED: HEPARIN 10,000 UNIT/10 ML VIAL IV SCH (16:15)
[2020-08-10] MEDS: ATORVASTATIN 20 MG TABLET PER TUBE SCH (20:11)
[2020-08-11] MEDS: MIDAZOLAM 100 MG in SODIUM CHLORIDE 0.9% 80 ML IV PRN ×3 (00:01→20:00)
[2020-08-11 00:48] LABS: Hematocrit 35.1 VOL% (35.7-47.0); Hemoglobin 11.3 GM/DL (12.0-16.0)
[2020-08-11] MEDS: INSULIN LISPRO 100 UNIT/ML SUBCUT SCH ×4 (01:29→17:07)
[2020-08-11] MEDS: ACETAMINOPHEN 325 MG TABLET PO PRN ×2 (01:30→18:20)
[2020-08-11] MEDS: PIPERACILLIN/TAZOBACTAM 3,375 MG in SODIUM CHLORIDE 0.9% 100 ML IV SCH ×2 (04:09→16:55)
[2020-08-11 05:03] LABS: ABG Base Excess -3.7 MMOL/L (-2.5-2.5); ABG HCO3 21.2 MMOL/L (20-26); ABG Oxygen Saturation 88.8 % (95-100); ABG PCO2 43.5 MM HG (35-48); ABG PH 7.322 (7.35-7.45); ABG PO2 63.4 MM HG (80-95); ABG TCO2 19.7 MMOL/L (23-27); Allen Test Positive; Pt O2 Delivery Device Ventilator
[2020-08-11 05:29] LABS: Basophils # 0.1 10*3/uL (0.0-0.2); Basophils % 0.3 % (0.0-0.8); Eosinophils % 0.1 % (0.00-10.9); Hematocrit 35.4 VOL% (35.7-47.0); Hemoglobin 11.3 GM/DL (12.0-16.0); Immature Granulocytes % 5.2 %; Immature Granulocytes Absolute 0.96 #; Lymphocytes # 0.9 10*3/uL (1.4-4.0); Lymphocytes % 4.9 % (21.3-54.2); Mean Corpuscular HGB Conc 31.9 GM/DL (32-36); Mean Corpuscular Volume 81.6 FL (87-102); Mean Platelet Volume 11.1 FL (9.6-12.0); Monocytes % 8.8 % (1.7-12.7); NRBC # 0.13 10*3/uL; Neutrophils % 80.7 % (38.7-73.9); Platelet Count 264 T/CUMM (130-400); Red Blood Count 4.34 MC/CUMM (3.8-5.5); Red Cell Distribution Width 16.6 % (9.3-17.3); White Blood Count 18.5 T/CUMM (4-12)
[2020-08-11 05:42] LABS: Albumin 1.6 G/DL (3.4-5.0); Bilirubin,Total 2.9 MG/DL (0.2-1.0); Osmolality,Calculated 297.1 MOS/KG (273-304); Total Protein 6.4 G/DL (6.4-8.3)
[2020-08-11 05:50] LABS: Hypochromasia 1+; Lymphocytes 10 % (20-55); Microcytosis Slight; Platelet Estimate Adequate; Segmented Neutrophils 82 % (50-85); Total Cells Counted 100
[2020-08-11] MEDS: CHOLECALCIFEROL 1,000 UNIT TABLET PO SCH (09:10)
[2020-08-11] MEDS: ZINC GLUCONATE 50 MG TABLET PO SCH (09:10)
[2020-08-11] MEDS: INSULIN GLARGINE 100 UNIT/ML SUBCUT SCH (09:11)
[2020-08-11] MEDS: ASCORBIC ACID 500 MG TABLET PO SCH (09:11)
[2020-08-11] MEDS: PANTOPRAZOLE 40 MG VIAL IV SCH ×2 (09:11→21:15)
[2020-08-11] MEDS: DEXAMETHASONE 4 MG/1 ML VIAL IV SCH (09:12)
[2020-08-11] MEDS: AZITHROMYCIN INJ 500 MG in SODIUM CHLORIDE 0.9% 250 ML IV SCH (09:17)
[2020-08-11] MEDS: NOREPINEPHRINE 8 MG in SODIUM CHLORIDE 0.9% 242 ML IV PRN (17:46)
[2020-08-11] MEDS: ATORVASTATIN 20 MG TABLET PER TUBE SCH (21:15)
[2020-08-12] MEDS: INSULIN LISPRO 100 UNIT/ML SUBCUT SCH ×3 (00:10→08:56)
[2020-08-12] MEDS: ROCURONIUM 1,000 MG in SODIUM CHLORIDE 0.9% 175 ML IV PRN (00:36)
[2020-08-12 03:01] LABS: ABG Base Excess -2.5 MMOL/L (-2.5-2.5); ABG HCO3 22.2 MMOL/L (20-26); ABG Oxygen Saturation 90.2 % (95-100); ABG PCO2 47.8 MM HG (35-48); ABG PH 7.309 (7.35-7.45)
[2020-08-12 03:02] LABS: Allen Test Positive; Pt O2 Delivery Device Ventilator
[2020-08-12] MEDS: MIDAZOLAM 100 MG in SODIUM CHLORIDE 0.9% 80 ML IV PRN ×2 (04:59→14:52)
[2020-08-12 05:09] LABS: Basophils # 0.1 10*3/uL (0.0-0.2); Basophils % 0.6 % (0.0-0.8); Hematocrit 33.6 VOL% (35.7-47.0); Hemoglobin 10.5 GM/DL (12.0-16.0); Immature Granulocytes % 6.6 %; Immature Granulocytes Absolute 1.34 #; Lymphocytes # 0.9 10*3/uL (1.4-4.0); Lymphocytes % 4.6 % (21.3-54.2); Mean Corpuscular HGB Conc 31.3 GM/DL (32-36); Monocytes % 9.6 % (1.7-12.7); NRBC # 0.12 10*3/uL; Neutrophils % 78.6 % (38.7-73.9); Platelet Count 258 T/CUMM (130-400); Red Cell Distribution Width 16.9 % (9.3-17.3); White Blood Count 20.3 T/CUMM (4-12)
[2020-08-12] MEDS: PIPERACILLIN/TAZOBACTAM 3,375 MG in SODIUM CHLORIDE 0.9% 100 ML IV SCH ×2 (05:35→17:15)
[2020-08-12 05:37] LABS: Calcium 8.6 MG/DL (8.5-10.1); Osmolality,Calculated 300.4 MOS/KG (273-304)
[2020-08-12 05:53] VITALS: BP 116/61
[2020-08-12 05:53] LABS: Band Neutrophils 3 % (0-10); Hypochromasia 1+; Lymphocytes 7 % (20-55); Metamyelocytes 1 %; Microcytosis 1+; Nucleated Red Blood Cells 1 (0-5); Polychromasia Slight; Segmented Neutrophils 81 % (50-85); Total Cells Counted 100
[2020-08-12 05:54] LABS: Platelet Estimate Normal
[2020-08-12] MEDS: DEXAMETHASONE 4 MG/1 ML VIAL IV SCH (08:54)
[2020-08-12] MEDS: PANTOPRAZOLE 40 MG VIAL IV SCH ×2 (08:54→20:19)
[2020-08-12] MEDS: ZINC GLUCONATE 50 MG TABLET PO SCH (08:55)
[2020-08-12] MEDS: CHOLECALCIFEROL 1,000 UNIT TABLET PO SCH (08:55)
[2020-08-12] MEDS: ASCORBIC ACID 500 MG TABLET PO SCH (08:55)
[2020-08-12] MEDS: INSULIN GLARGINE 100 UNIT/ML SUBCUT SCH (08:55)
[2020-08-12] MEDS ORDERED: INSULIN GLARGINE 100 UNIT/ML SUBCUT SCH (11:00)
[2020-08-12] MEDS ORDERED: INSULIN LISPRO 100 UNIT/ML SUBCUT SCH (12:00)
[2020-08-12 12:01] LABS: ABG Base Excess -3.9 MMOL/L (-2.5-2.5); ABG HCO3 23.5 MMOL/L (20-26); ABG PCO2 53.6 MM HG (35-48); ABG PH 7.259 (7.35-7.45); ABG PO2 53.9 MM HG (80-95); ABG TCO2 25.1 MMOL/L (23-27); Allen Test Positive; Pt O2 Delivery Device Ventilator
[2020-08-12] MEDS: INSULIN REGULAR DRIP 100 ML IV PRN ×2 (15:49→23:49)
[2020-08-12] MEDS: ATORVASTATIN 20 MG TABLET PER TUBE SCH (20:20)
[2020-08-13] MEDS: ROCURONIUM 1,000 MG in SODIUM CHLORIDE 0.9% 175 ML IV PRN (00:58)
[2020-08-13] MEDS: NOREPINEPHRINE 8 MG in SODIUM CHLORIDE 0.9% 242 ML IV PRN (00:58)
[2020-08-13] MEDS: MIDAZOLAM 100 MG in SODIUM CHLORIDE 0.9% 80 ML IV PRN ×3 (00:59→22:09)
[2020-08-13 03:54] LABS: Basophils # 0.1 10*3/uL (0.0-0.2); Basophils % 0.4 % (0.0-0.8); Hematocrit 31.1 VOL% (35.7-47.0); Hemoglobin 9.9 GM/DL (12.0-16.0); Immature Granulocytes % 11.8 %; Immature Granulocytes Absolute 3.22 #; Lymphocytes # 1.4 10*3/uL (1.4-4.0); Mean Corpuscular HGB Conc 31.8 GM/DL (32-36); Mean Corpuscular Volume 82.3 FL (87-102); Monocytes % 10.7 % (1.7-12.7); NRBC # 0.35 10*3/uL; Neutrophils % 72.1 % (38.7-73.9); Platelet Count 272 T/CUMM (130-400); Red Blood Count 3.78 MC/CUMM (3.8-5.5); Red Cell Distribution Width 17.2 % (9.3-17.3); White Blood Count 27.2 T/CUMM (4-12)
[2020-08-13 04:18] LABS: Albumin 1.6 G/DL (3.4-5.0); Bilirubin,Total 1.1 MG/DL (0.2-1.0); Calcium 8.9 MG/DL (8.5-10.1); Total Protein 6.4 G/DL (6.4-8.3)
[2020-08-13 04:40] LABS: Allen Test Positive; Pt O2 Delivery Device Ventilator
[2020-08-13 04:42] LABS: ABG Base Excess -4.3 MMOL/L (-2.5-2.5); ABG HCO3 22.4 MMOL/L (20-26); ABG Oxygen Saturation 96.4 % (95-100); ABG PCO2 48.8 MM HG (35-48); ABG PO2 98.2 MM HG (80-95); ABG TCO2 23.9 MMOL/L (23-27)
[2020-08-13 05:20] LABS: Band Neutrophils 7 % (0-10); Eosinophils 1 % (0-10); Lymphocytes 6 % (20-55); Metamyelocytes 3 %; Myelocytes 1 %; Nucleated Red Blood Cells 4 (0-5); Platelet Estimate Normal; Segmented Neutrophils 67 % (50-85); Total Cells Counted 100
[2020-08-13 05:21] LABS: Anisocytosis 1+
[2020-08-13] MEDS: PIPERACILLIN/TAZOBACTAM 3,375 MG in SODIUM CHLORIDE 0.9% 100 ML IV SCH ×3 (05:22→18:52)
[2020-08-13] MEDS: CHOLECALCIFEROL 1,000 UNIT TABLET PO SCH (09:16)
[2020-08-13] MEDS: ASCORBIC ACID 500 MG TABLET PO SCH (09:16)
[2020-08-13] MEDS: PANTOPRAZOLE 40 MG VIAL IV SCH ×2 (09:17→20:17)
[2020-08-13] MEDS: ZINC GLUCONATE 50 MG TABLET PO SCH (09:17)
[2020-08-13] MEDS: DEXAMETHASONE 4 MG/1 ML VIAL IV SCH (09:17)
[2020-08-13 11:18] LABS: ABG HCO3 20.2 MMOL/L (20-26); ABG Oxygen Saturation 90.5 % (95-100); ABG PCO2 60.4 MM HG (35-48); ABG PO2 69.8 MM HG (80-95); ABG TCO2 22.3 MMOL/L (23-27); Allen Test Positive; Pt O2 Delivery Device Ventilator
[2020-08-13 11:20] LABS: ABG PH 7.204 (7.35-7.45)
[2020-08-13] MEDS ORDERED: HEPARIN 10,000 UNIT/10 ML VIAL ONE (11:40)
[2020-08-13] MEDS: ALBUMIN 25% 12.5 GM in PREMIX 1 EACH IV SCH ×2 (12:47→20:17)
[2020-08-13] MEDS: INSULIN REGULAR DRIP 100 ML IV PRN (13:03)
[2020-08-13] MEDS: AZITHROMYCIN INJ 500 MG in SODIUM CHLORIDE 0.9% 250 ML IV SCH (13:34)
[2020-08-13] MEDS: ENOXAPARIN 120 MG/0.8 ML SYRINGE SUBCUT SCH (13:34)
[2020-08-13] MEDS ORDERED: VANCOMYCIN INJ 2,000 MG in SODIUM CHLORIDE 0.9% 500 ML IV ONE (17:00)
[2020-08-13] MEDS: ROCURONIUM 500 MG in SODIUM CHLORIDE 0.9% 500 ML IV PRN (17:52)
[2020-08-13] MEDS: ATORVASTATIN 20 MG TABLET PER TUBE SCH (20:17)
[2020-08-14] MEDS: INSULIN REGULAR DRIP 100 ML IV PRN (01:02)
[2020-08-14 03:27] LABS: Basophils # 0.1 10*3/uL (0.0-0.2); Basophils % 0.2 % (0.0-0.8); Eosinophils # 0.1 10*3/uL (0.0-0.87); Eosinophils % 0.4 % (0.00-10.9); Hematocrit 27.2 VOL% (35.7-47.0); Hemoglobin 8.4 GM/DL (12.0-16.0); Immature Granulocytes % 11.2 %; Lymphocytes # 1.1 10*3/uL (1.4-4.0); Lymphocytes % 4.7 % (21.3-54.2); Mean Corpuscular HGB Conc 30.9 GM/DL (32-36); Mean Corpuscular Volume 84.5 FL (87-102); Mean Platelet Volume 11.4 FL (9.6-12.0); Monocytes % 12.2 % (1.7-12.7); NRBC # 0.37 10*3/uL; Neutrophils % 71.3 % (38.7-73.9); Platelet Count 235 T/CUMM (130-400); Red Blood Count 3.22 MC/CUMM (3.8-5.5); Red Cell Distribution Width 17.3 % (9.3-17.3); White Blood Count 23.3 T/CUMM (4-12)
[2020-08-14 03:50] LABS: Albumin 1.7 G/DL (3.4-5.0); Bilirubin,Total 0.7 MG/DL (0.2-1.0); Calcium 8.5 MG/DL (8.5-10.1); Osmolality,Calculated 295.7 MOS/KG (273-304); Total Protein 5.9 G/DL (6.4-8.3)
[2020-08-14 04:46] LABS: ABG HCO3 21.8 MMOL/L (20-26); ABG Oxygen Saturation 94.5 % (95-100); ABG PCO2 58.4 MM HG (35-48); ABG PO2 80.3 MM HG (80-95); ABG TCO2 23.5 MMOL/L (23-27); Allen Test Positive; Pt O2 Delivery Device Ventilator
[2020-08-14] MEDS: ROCURONIUM 500 MG in SODIUM CHLORIDE 0.9% 500 ML IV PRN ×2 (04:56→14:50)
[2020-08-14 05:13] LABS: Band Neutrophils 2 % (0-10); Lymphocytes 5 % (20-55); Nucleated Red Blood Cells 3 (0-5); Segmented Neutrophils 85 % (50-85); Total Cells Counted 100
[2020-08-14 05:14] LABS: Hypochromasia Slight; Microcytosis 1+; Platelet Estimate Normal; Polychromasia Slight
[2020-08-14] MEDS: PIPERACILLIN/TAZOBACTAM 3,375 MG in SODIUM CHLORIDE 0.9% 100 ML IV SCH ×2 (06:31→18:28)
[2020-08-14] MEDS: MIDAZOLAM 100 MG in SODIUM CHLORIDE 0.9% 80 ML IV PRN ×2 (08:19→17:41)
[2020-08-14] MEDS: ALBUMIN 25% 12.5 GM in PREMIX 1 EACH IV SCH ×2 (08:23→20:40)
[2020-08-14] MEDS: ASCORBIC ACID 500 MG TABLET PO SCH (08:24)
[2020-08-14] MEDS: PANTOPRAZOLE 40 MG VIAL IV SCH ×2 (08:24→20:37)
[2020-08-14] MEDS: ZINC GLUCONATE 50 MG TABLET PO SCH (08:24)
[2020-08-14] MEDS: CHOLECALCIFEROL 1,000 UNIT TABLET PO SCH (08:24)
[2020-08-14] MEDS: DEXAMETHASONE 4 MG/1 ML VIAL IV SCH (08:25)
[2020-08-14] MEDS: INSULIN LISPRO 100 UNIT/ML SUBCUT SCH ×5 (08:29→20:37)
[2020-08-14] MEDS ORDERED: INSULIN GLARGINE 100 UNIT/ML SUBCUT SCH (09:00)
[2020-08-14] MEDS: ENOXAPARIN 120 MG/0.8 ML SYRINGE SUBCUT SCH (12:09)
[2020-08-14] MEDS: AZITHROMYCIN INJ 500 MG in SODIUM CHLORIDE 0.9% 250 ML IV SCH (13:53)
[2020-08-14] MEDS: NOREPINEPHRINE 8 MG in SODIUM CHLORIDE 0.9% 242 ML IV PRN (15:23)
[2020-08-14] MEDS: ACETAMINOPHEN 325 MG TABLET PO PRN (16:15)
[2020-08-14] MEDS: ALBUTEROL INHALER 18 GM INH SCH ×2 (16:23→20:37)
[2020-08-14] MEDS ORDERED: VANCOMYCIN INJ 750 MG in SODIUM CHLORIDE 0.9% 250 ML IV PRN (17:00)
[2020-08-14] MEDS: ATORVASTATIN 20 MG TABLET PER TUBE SCH (20:37)
== END 2020-08-14 22:01 | disposition expired | DRG 207 ==
LOC: N.ED 16:27 → SUATTDRO 21:27 → N.EDINP 21:27 → N.CC 22:15
PROVIDERS: ADMIT Internal Medicine; ATTEND Internal Medicine